=== PATIENT | male | born 1970 | race Two or more races ===

== ENCOUNTER 2018-12-31 05:20 | Day surgery (SDC) | payer OTHER ==
[~2018-12-31 05:20] MED LIST: COZAAR50 MG PO; ESTAZOLAM2 MG PO; [UNRECOGNIZED DRUG - OTHER] PO; [UNRECOGNIZED DRUG - OTHER] PO
[2018-12-31] MEDS ORDERED: NEURONTIN800 MG PO (11:10)
[2018-12-31] MEDS ORDERED: POLY119PG PO (11:10)
[2018-12-31] MEDS ORDERED: PERCOCET 5-3251 EACH PO (11:10)
[2018-12-31] MEDS ORDERED: SURFAK240 M1 PO (11:11)
== END 2018-12-31 15:10 | disposition home or self-care (01) ==
LOC: CIR.AMB 05:20
DX: K43.6 Other and unspecified ventral hernia with obstruction, without gangrene (principal); K42.0 Umbilical hernia with obstruction, without gangrene